=== PATIENT | female | born 1985 | race Caucasian/White ===

== ENCOUNTER 2017-11-20 08:46 | Emergency (ER) | payer OTHER ==
[~2017-11-20] VITALS: Ht 154.9 cm; Wt 63.0 kg
[~2017-11-20 08:46] MED LIST: MIRENA1 EACH IY; NORCO 5-325 TA1 EACH PO
[2017-11-20] MEDS ORDERED: ONDANSETRON ODT8 MG PO (10:58)
== END 2017-11-20 11:03 | disposition home or self-care (01) ==
LOC: ED 08:46
DX: R11.2 Nausea with vomiting, unspecified (principal); Z88.1 Allergy status to other antibiotic agents
CPT/HCPCS: 84703; 99283

== ENCOUNTER 2018-12-17 07:18 | Emergency (ER) | payer OTHER ==
[~2018-12-17] VITALS: Ht 154.9 cm; Wt 63.0 kg
[~2018-12-17 07:18] MED LIST changes: +ONDANSETRON ODT8 MG PO
[2018-12-17] MEDS ORDERED: MECLIZINE HCL25 MG PO (07:30)
[2018-12-17] MEDS ORDERED: SCOPOLAMINE1 EACH TD (07:40)
== END 2018-12-17 07:44 | disposition home or self-care (01) ==
LOC: ED 07:18
DX: R42 Dizziness and giddiness (principal); Z88.0 Allergy status to penicillin
CPT/HCPCS: 99283

== ENCOUNTER 2018-12-21 12:40 | Emergency (ER) | payer OTHER ==
[~2018-12-21] VITALS: Ht 154.9 cm; Wt 63.0 kg
[~2018-12-21 12:40] MED LIST changes: +MECLIZINE HCL25 MG PO; +SCOPOLAMINE1 EACH TD
--- OUTSIDE RECORDS SUMMARY | 2018-12-21 12:48 | XMS ---
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 Cintia has no Care Guidelines for this patient. Chana VISIT COUNT (12 MO.) 2 [facility] TOTAL 2 NOTE: Visits indicate total known visits. ED/C VISIT TRACKING (12 MO.) 12/21/2018 12:41 [facility] [place] TYPE: Emergency COMPLAINT: - DIZZINESS,VOMITING 12/17/2018 07:19 [facility] [place] TYPE: Emergency COMPLAINT: - DIZZINESS DIAGNOSES: - Allergy status to penicillin - Dizziness and giddiness INPATIENT VISIT TRACKING (12 MO.) No inpatient visits to display in this time frame [id number]
[2018-12-21] MEDS ORDERED: TRANSDERM-SCOP1 EACH TD (15:17)
[2018-12-21] MEDS ORDERED: ONDANSETRON ODT8 MG PO (15:17)
== END 2018-12-21 15:30 | disposition home or self-care (01) ==
LOC: ED 12:40
DX: H83.09 Labyrinthitis, unspecified ear (principal); Z88.0 Allergy status to penicillin
CPT/HCPCS: 80053; 85025; 96361; 96374; 99284-25; J2405; J7030

== ENCOUNTER 2021-02-05 14:46 | Emergency (ER) | payer OTHER ==
[~2021-02-05] VITALS: Ht 154.9 cm; Wt 72.6 kg
[~2021-02-05 14:46] MED LIST changes: +TRANSDERM-SCOP1 EACH TD
--- OUTSIDE RECORDS SUMMARY | 2021-02-05 14:50 | XMS ---
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 Cintia has no Care Guidelines for this patient. Care History Medical/Surgical 12/22/2018 [facility] - PATIENT DOES NOT HAVE A PCP- [facility] HAS MADE A REFERRAL TO [facility] - PATIENT HAS [employer] INSURANCE. E.D. VISIT COUNT (12 MO.) 1 [facility] TOTAL 1 NOTE: Visits indicate total known visits. ED/UCC VISIT TRACKING (12 MO.) 02/05/2021 14:48 [facility] [place] TYPE: Emergency COMPLAINT: - PAIN IN BOTH EARS INPATIENT VISIT TRACKING (12 MO.) No inpatient visits to display in this time frame [email or web address]
== END 2021-02-05 16:39 | disposition home or self-care (01) ==
LOC: ED 14:46
DX: H61.22 Impacted cerumen, left ear (principal); H69.92 Unspecified Eustachian tube disorder, left ear; Z88.0 Allergy status to penicillin
CPT/HCPCS: 69209; 99282-25

== ENCOUNTER 2022-03-19 15:05 | Emergency (ER) | payer OTHER ==
[~2022-03-19] VITALS: Ht 154.9 cm; Wt 72.6 kg
--- OUTSIDE RECORDS SUMMARY | 2022-03-19 15:18 | XMS ---
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 Cintia has no Care Guidelines for this patient. Chana VISIT COUNT (12 MO.) 1 [facility] TOTAL 1 NOTE: Visits indicate total known visits. ED/UCC VISIT TRACKING (12 MO.) 03/19/2022 15:10 [facility] [place] TYPE: Emergency COMPLAINT: - EXTREMITY PAIN/INJURUY INPATIENT VISIT TRACKING (12 MO.) No inpatient visits to display in this time frame [id number]
== END 2022-03-19 16:40 | disposition home or self-care (01) ==
LOC: ED 15:05
DX: S61.210A Laceration without foreign body of right index finger without damage to nail, initial encounter (principal); W26.8XXA Contact with other sharp object(s), not elsewhere classified, initial encounter; Y99.0 Civilian activity done for income or pay; Z88.0 Allergy status to penicillin
CPT/HCPCS: 12001; 99283-25

== ENCOUNTER 2022-04-26 21:15 | Emergency (ER) | payer OTHER ==
[~2022-04-26] VITALS: Ht 154.9 cm; Wt 67.0 kg
--- OUTSIDE RECORDS SUMMARY | 2022-04-26 21:22 | XMS ---
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 Cintia has no Care Guidelines for this patient. Chana VISIT COUNT (12 MO.) 2 [facility] TOTAL 2 NOTE: Visits indicate total known visits. ED/C VISIT TRACKING (12 MO.) 04/26/2022 21:16 [facility] [place] TYPE: Emergency COMPLAINT: - ANKLE PAIN 03/19/2022 15:10 [facility] [place] TYPE: Emergency COMPLAINT: - RT FINGER INJURY DIAGNOSES: - Contact with other sharp object(s), not elsewhere classified, initial encounter - Allergy status to penicillin - Civilian activity done for income or pay - Laceration without foreign body of right index finger without damage to nail, initial encounter INPATIENT VISIT TRACKING (12 MO.) No inpatient visits to display in this time frame [id number]
== END 2022-04-26 22:22 | disposition home or self-care (01) ==
LOC: ED 21:15
DX: S93.401A Sprain of unspecified ligament of right ankle, initial encounter (principal); W10.9XXA Fall (on) (from) unspecified stairs and steps, initial encounter; Z88.0 Allergy status to penicillin
CPT/HCPCS: 73610; 90714

== ENCOUNTER 2023-02-14 11:22 | Inpatient (IN) | payer OTHER ==
[~2023-02-14] VITALS: Ht 154.9 cm; Wt 79.4 kg
[2023-02-14 13:11] VITALS: BP 138/85
--- NOTE | 2023-02-14 16:41 | PR ---
[facility] [address] [place], [place] [address] Signed Progress Notes IP Datetime Report Generated by CPN: 02/14/2023 16:41 PROGRESS NOTES: [id number] Impression: Reassuring Heart Rate Plan: Continue Present Management Informed Consent Obtain: Induction of Labor Other Informed Consents: PreE w/ severe features / magnesium VITAL SIGNS: [id number] EXAM: [id number] Dilatation: 2.0 Effacement: 20 Station: -2 Contractions: q2-5 min MEMBRANES: [id number] Pooling: Negative Comments: Care of patient assumed by myself. Pt seen and evaluated. Cytotec just placed by RN. Pt reports rare contractions and mild magnesium symptoms. +FM. Mild HOUGH, no RUQ pain, or visual changes. Severe BPs have resolved s/p IV labetalol and magnesium. Discussed anticipated course of labor / delivery and course. Discussed approach to further antihypertensives if needed, and serial labs scheduled. All questions answered. FETUS A: [id number] FHR Baseline: 135 Variability: Moderate 6-25bpm Accelerations: 15X15 Decelerations: None FHR Category: Category I Presentation: Vertex Comments on Fetus A: No evidence of acidemia FETUS B: [id number] Signing Physician: Awilda Preciado DO Copies: ~ *Electronically Signed* 02/14/23 2604 AWILDA PRECIADO (TONY) DO PATIENT NAME: JACE FORREST PROGRESS NOTE DATE OF : 89 PHYSICIAN: AWILDA PRECIADO (JD) DO RPT #: [id number] REPORT IS CONFIDENTIAL AND NOT TO BE RELEASED WITHOUT AUTHORIZATION
--- NOTE | 2023-02-14 19:44 | PR ---
[facility] [address] [place], [place] [address] Signed Progress Notes IP Datetime Report Generated by CPN: 02/14/2023 19:44 PROGRESS NOTES: [id number] Impression: Reassuring Heart Rate Procedures: Sterile Vag Exam Plan: Continue Present Management Other Plans: Recheck 1 hr, consider AROM, cytotec, or Cook Cath Informed Consent Obtain: Induction of Labor Other Informed Consents: PreE w/ severe features / magnesium VITAL SIGNS: [id number] EXAM: [id number] Dilatation: 2.0 Effacement: 60 Station: -2 Contractions: q2-5 min MEMBRANES: [id number] Pooling: Negative Comments: Pt seen and examined. Some labile BPs requiring intermittent dosing of IV labetalol. Added oral Procardia XL 30mg x 1 dose. Will continue to monitor bps closely. Cervix still unfavorable. Dee too frequently for another dose of cytotec. Will recheck in one hour; discussed AROM vs cytotec vs Cook cath. Epidural on demand. All questions answered FETUS A: [id number] FHR Baseline: 135 Variability: Moderate 6-25bpm Accelerations: 15X15 Decelerations: None FHR Category: Category I Presentation: Vertex Comments on Fetus A: No evidence of acidemia FETUS B: [id number] Signing Physician: Awilda Preciado DO Copies: ~ *Electronically Signed* 02/14/231943 AWILDA PRECIADO (TONY) DO PATIENT NAME: JACE FORREST PROGRESS NOTE DATE OF : 89 PHYSICIAN: AWILDA PRECIADO (JD) DO RPT #: [id number] REPORT IS CONFIDENTIAL AND NOT TO BE RELEASED WITHOUT AUTHORIZATION
--- NOTE | 2023-02-14 21:50 | PR ---
[facility] [address] [place], [place] [address] Signed Progress Notes IP Datetime Report Generated by CPMirna: 02/14/2023 21:50 PROGRESS NOTES: [id number] Impression: Reassuring Heart Rate Procedures: Sterile Vag Exam Other Procedures: Cervical ripening catheter insertion Plan: Continue Present Management Other Plans: Recheck 1 hr, consider AROM, cytotec, or Cook Cath Informed Consent Obtain: Induction of Labor Other Informed Consents: PreE w/ severe features / magnesium VITAL SIGNS: [id number] EXAM: [id number] Dilatation: 2.0 Effacement: 20 Station: -2 Contractions: q2-5 min MEMBRANES: [id number] Pooling: Negative Comments: Pt seen and examined. Contractions continue but cervix unchanged. Small amount of dark bloody show or small bleeding noted on cervical exam. FHT overall reassuring. Recommend continued cervical ripening due to unfavorable cervix w/ Cook catheter. Cook cath placed w/out difficulty according to information operator's recommendations. GUILLERMO Baldwin present for entire exam and catheter placement. Will continue monitoring closely FETUS A: [id number] FHR Baseline: 135 Variability: Moderate 6-25bpm Accelerations: 15X15 Decelerations: None FHR Category: Category I Presentation: Vertex Comments on Fetus A: No evidence of acidemia FETUS B: [id number] Signing Physician: Awilda Preciado DO *Electronically Signed* 02/14/23 5340 AWILDA PRECIADO (TONY) DO PATIENT NAME: JACE FORREST PROGRESS NOTE DATE OF : 89 PHYSICIAN: AWILDA PRECIADO (JD) DO RPT #: [id number] REPORT IS CONFIDENTIAL AND NOT TO BE RELEASED WITHOUT AUTHORIZATION
--- NOTE | 2023-02-15 06:30 | PR ---
[facility] [address] [place], [place] [address] Signed Progress Notes IP Datetime Report Generated by CPN: 02/15/2023 06:30 PROGRESS NOTES: [id number] Impression: Reassuring Heart Rate Procedures: Artificial ROM; Sterile Vag Exam Other Procedures: Removal of Cook Cath Plan: Continue Present Management Other Plans: Recheck 1 hr, consider AROM, cytotec, or Cook Cath Informed Consent Obtain: Induction of Labor Other Informed Consents: PreE w/ severe features / magnesium VITAL SIGNS: [id number] EXAM: [id number] Dilatation: 4.0 Effacement: 50 Station: -2 Contractions: q2-5 min MEMBRANES: [id number] Pooling: Negative Comments: Pt seen and examined. Cook cath delivered thru cervix and resting in vagina and was removed w/out difficulty. Some dark bloody show noted. Discussed AROM and pt desires. AROM easily performed for small amount of clear fluid. Reviewed elevated BPs with no severe range pressures. Will dose another Procardia XL 30mg now. FETUS A: [id number] FHR Baseline: 135 Variability: Moderate 6-25bpm Accelerations: 15X15 Decelerations: None FHR Category: Category I Presentation: Vertex Comments on Fetus A: No evidence of acidemia FETUS B: [id number] Signing Physician: Awilda Preciado DO Copies: ~ *Electronically Signed* 02/15/23 3310 AWILDA PRECIADO (TONY) DO PATIENT NAME: JACE FORREST PROGRESS NOTE DATE OF : 89 PHYSICIAN: AWILDA PRECIADO (JD) DO RPT #: [id number] REPORT IS CONFIDENTIAL AND NOT TO BE RELEASED WITHOUT AUTHORIZATION
--- NOTE | 2023-02-15 08:38 | PR ---
[facility] [address] [place], [place] [address] Signed Progress Notes IP Datetime Report Generated by ESPINOZA: 02/15/2023 08:37 PROGRESS NOTES: [id number] Impression: Normal Progression of Labor; Reassuring Heart Rate Procedures: Intrauterine Pressure Catheter; Scalp Electrode; Sterile Vag Exam Other Procedures: Removal of Cook Cath Plan: Continue Present Management; Anticipate Vaginal Delivery Other Plans: Recheck 1 hr, consider AROM, cytotec, or Cook Cath Informed Consent Obtain: Vaginal Delivery Other Informed Consents: PreE w/ severe features / magnesium VITAL SIGNS: [id number] EXAM: [id number] Dilatation: 5.5 Effacement: 50 Station: -3 Contractions: q2-5 min MEMBRANES: [id number] Pooling: Negative Comments: Pt seen and examined. Doing well and now comfortable w/ epidural. Cx 5.5 and much softer. IUPC and FSE placed. Discussed FHT and acceleration w/ scalp stim. Overall reassuring FHT. No vaginal bleeding noted and clear fluid. Pt w/ hypokalemia and oral K+ replacement initated. Anticipate FETUS A: [id number] FHR Baseline: 135 Variability: Moderate 6-25bpm Accelerations: 15X15 Decelerations: None FHR Category: Category I Presentation: Vertex Comments on Fetus A: No evidence of acidemia FETUS B: [id number] Signing Physician: Awilda Preciado DO Copies: ~ *Electronically Signed* 02/15/23 0899 AWILDA PRECIADO (TONY) DO PATIENT NAME: JACE FORREST MARGARITA PROGRESS NOTE DATE OF : 89 PHYSICIAN: AWILDA PRECIADO (JD) DO RPT #: [id number] REPORT IS CONFIDENTIAL AND NOT TO BE RELEASED WITHOUT AUTHORIZATION
--- NOTE | 2023-02-15 17:24 | PR ---
[facility] [address] [place], [place] [address] Signed Progress Notes IP Datetime Report Generated by CPN: 02/15/2023 17:24 PROGRESS NOTES: [id number] Impression: Normal Progression of Labor; Reassuring Heart Rate Other Impressions: Slow progression / inadequate contractions Procedures: Sterile Vag Exam Other Procedures: Removal of Cook Cath Plan: Continue Present Management; Anticipate Vaginal Delivery Other Plans: Recheck 1 hr, consider AROM, cytotec, or Cook Cath Informed Consent Obtain: Vaginal Delivery Other Informed Consents: pitocin augmentation VITAL SIGNS: [id number] EXAM: [id number] Dilatation: 9.0 Effacement: 90 Station: -2 Contractions: q2-5 min MEMBRANES: [id number] Pooling: Negative Comments: Pt seen and examined. Doing well. Comfortable w/ contractions. C/O some pelvic pressure. No HOUGH, RUQ pain, or visual changes. Anticipate soon. FETUS A: [id number] FHR Baseline: 135 Variability: Moderate 6-25bpm Accelerations: 15X15 Decelerations: None FHR Category: Category I Presentation: Vertex Comments on Fetus A: No evidence of acidemia FETUS B: [id number] Signing Physician: Awilda Preciado DO Copies: ~ *Electronically Signed* 02/15/23 9831 AWILDA PRECIADO (TONY) DO PATIENT NAME: JACE FORREST PROGRESS NOTE DATE OF : 89 PHYSICIAN: AWILDA PRECIADO (JD) DO RPT #: [id number] REPORT IS CONFIDENTIAL AND NOT TO BE RELEASED WITHOUT AUTHORIZATION
--- NOTE | 2023-02-16 01:19 | PR ---
[facility] [address] [facility] [place] [place] [address] Signed PP Progress Notes Datetime Report Generated by ESPINOZA: 02/16/2023 01:19 SUBJECTIVE: [id number] Pain: Within Normal Limits Vital Signs: F2400417 Vital Signs: Reviewed Notable Details: Called to evaluate severe range BP Exam Comments: NAD, resting in bed No dyspnea/ retractions RRR DTRs: Patellar DTRs 2+, no clonus Extremities: trace edema BLLE UOP: Adequate, diuresing. 450mL in last hour. IMPRESSION/PLAN/PROCEDURES: [id number] Impression: Induced Hypertension Plan: Continue Present Management Other Plans: Re-initiate labetalol HTN protocol Progress Notes: PPD#1 s/p -admitted for MIOL for PreE with severe features. Day of admission (02/14) required labetalol 20, 40 and 80mg prior to BP controlled below severe range. Started on MgSO4. Received an procardia 30XL later that evening after an additional 80mg labetalol. Magnesium continued after delivery. Received an additional procardia 30XL at 2300 02/15 for sustained elevated but non-severe BP. -delivered at 1747 on 02/15. Initially brisk bleeding, required additional 20 units pitocin, 1000mcg cytotec per rectum, and TXA 1g. Plan: labs rechecked, labetalol 20mg IV administered and labetalol protocol re-initiated. Bleeding well controlled at this point. Signing Physician: Tom Harvey DO Copies: ~ *Electronically Signed* 02/16/23 0119 TOM HARVEY DO PATIENT NAME: JACE FORREST MARGARITA PROGRESS NOTE DATE OF : 89 PHYSICIAN: TOM HARVEY DO RPT #: [id number] REPORT IS CONFIDENTIAL AND NOT TO BE RELEASED WITHOUT AUTHORIZATION
--- NOTE | 2023-02-16 08:24 | PR ---
[facility] [address] [place], [place] [address] Signed PP Progress Notes Datetime Report Generated by ESPINOZA: 02/16/2023 08:24 SUBJECTIVE: [id number] Pain: Within Normal Limits Nausea/Vomiting: Denies Flatus: Yes Vital Signs: [id number] Vital Signs: Reviewed; Within Normal Limits Notable Details: BPs improved; will monitor closely Cardiovascular: Normal Respiratory: Normal Abdomen/Uterus: Normal Lochia: Normal Vulva/Perineum: Not Done Breasts: Not Done CVA Tenderness: Normal Extremities: Normal Incision: Not Applicable Progress: Not Applicable Exam Comments: Fundus firm U-2 nontender. IMPRESSION/PLAN/PROCEDURES: [id number] Impression: Normal Progression Plan: Continue Present Management Other Plans: Re-initiate labetalol HTN protocol Procedures: None Progress Notes: Pt seen and examined. Doing well. Some atony w/ bleeding last night managed by Dr. Harvey. Bleeding and uterine tone excellent this morning and AM Hgb 11.1. No lightheadedness/dizziness. CMP reviewed and K+ improved, creatinine normal, and Mag therapeutic. Bottlefeeding. Some labile BPs overnight. Pt received IV labetalol and another dose Procardia XL 30mg at _22:00. Excellent urine output w/ large amount of dilute urine in benjamin bag. No other questions or concerns. Continue Mag until 24 hr . Anticipate d/c home tomorrow. Discussed f/u BP visit in the office 48 hr following delivery. Discussed possible strategies for BP control as needed. All questions answered. Signing Physician: Tom Harvey DO *Electronically Signed* 02/16/23 0824 TOM HARVEY DO PATIENT NAME: JACE FORREST MARGARITA PROGRESS NOTE DATE OF : 89 PHYSICIAN: TOM HARVEY DO RPT #: [id number] REPORT IS CONFIDENTIAL AND NOT TO BE RELEASED WITHOUT AUTHORIZATION
--- NOTE | 2023-02-17 07:13 | PR ---
[facility] [address] [place], [place] [address] Signed PP Progress Notes Datetime Report Generated by CPN: 02/17/2023 07:13 SUBJECTIVE: [id number] Pain: Within Normal Limits Nausea/Vomiting: Denies Flatus: Yes Bowel Movement: Yes Vital Signs: R0579126 Vital Signs: Reviewed Notable Details: BPs improved since last night; no severe range BPs this AM Cardiovascular: Normal Respiratory: Normal Abdomen/Uterus: Normal Lochia: Normal Vulva/Perineum: Not Done Breasts: Not Done CVA Tenderness: Normal Extremities: Normal Incision: Not Applicable Progress: Normal Exam Comments: Fundus firm U-2 nontender IMPRESSION/PLAN/PROCEDURES: [id number] Impression: Normal Progression Other Impression: Improved preE w/ severe features w/ labile BPs Plan: Continue Present Management Other Plans: Re-initiate labetalol HTN protocol Procedures: None Progress Notes: Pt seen and examined. Doing well. No HOUGH, RUQ pain or visual changes. Sustained severe range BPs last night requiring IV labetalol. Oral procardia XL increased to 60mg and BPs now well controlled. Ambulating, voiding, and tolerating full diet. Pain and lochia minimal. well. No other concerns. Will keep one additional night for BP monitoring. Pt understands and agrees. All questions answered. Signing Physician: Awilda Preciado DO *Electronically Signed* 02/17/23 0725 AWILDA PRECIADO (TONY) DO PATIENT NAME: JACE FORREST PROGRESS NOTE DATE OF : 89 PHYSICIAN: AWILDA PRECIADO) DO RPT #: [id number] REPORT IS CONFIDENTIAL AND NOT TO BE RELEASED WITHOUT AUTHORIZATION
[2023-02-17 20:49] VITALS: BP 154/93
--- NOTE | 2023-02-18 08:16 | PR ---
[facility] [address] [place], [place] [address] Signed PP Progress Notes Datetime Report Generated by ESPINOZA: 02/18/2023 08:16 SUBJECTIVE: [id number] Pain: Within Normal Limits Nausea/Vomiting: Denies Flatus: Yes Bowel Movement: No Vital Signs: [id number] Vital Signs: Reviewed Notable Details: BPs improved; no sustained severe range BPs overnight Cardiovascular: Normal Respiratory: Normal Abdomen/Uterus: Normal Lochia: Normal Vulva/Perineum: Not Done Breasts: Not Done CVA Tenderness: Normal Extremities: Normal Incision: Not Applicable Progress: Not Applicable Exam Comments: Fundus firm U-2 nontender IMPRESSION/PLAN/PROCEDURES: [id number] Impression: Normal Progression Other Impression: PreE w/ severe features; improved Plan: Discharge Other Plans: Re-initiate labetalol HTN protocol Procedures: None Progress Notes: Pt seen and examined. Doing well. Ambulating, voiding, and tolerating full diet. Pain and lochia minimal. Bottlefeeding without difficulty. No HOUGH, RUQ pain, or visual changes. BPs much better controlled w/ Procardia XL 90mg po. Pt strongly desires d/c home. Reviewed s/sx PreE. Pt agrees to check BPs 1-2 x daily and call w/ elevated pressures. BP check in the office in 2 days. Planning Mirena for pp contraception. No other questions or concerns. Reviewed d/c instructions in detail w/ pt and partner. Signing Physician: Awilda Preciado DO *Electronically Signed* 02/18/23 0816 AWILDA PRECIADO) DO PATIENT NAME: JACE FORREST MARGARITA PROGRESS NOTE DATE OF : 89 PHYSICIAN: AWILDA PRECIADO (JD) DO RPT #: [id number] REPORT IS CONFIDENTIAL AND NOT TO BE RELEASED WITHOUT AUTHORIZATION
== END 2023-02-18 09:30 | disposition home or self-care (01) | DRG 807 ==
LOC: FBCO 11:22 → FBC 12:14
PROVIDERS: ADMIT Obstetrics & Gynecology; ATTEND Obstetrics & Gynecology
PROC: 10E0XZZ Delivery of Products of Conception, External Approach (ICD-10-PCS; principal; 2023-02-15)
PROC: 10907ZC Drainage of Amniotic Fluid, Therapeutic from Products of Conception, Via Natural or Artificial Opening (ICD-10-PCS; 2023-02-15)
PROC: 00HU33Z Insertion of Infusion Device into Spinal Canal, Percutaneous Approach (ICD-10-PCS; 2023-02-15)
PROC: 3E0R3BZ Introduction of Anesthetic Agent into Spinal Canal, Percutaneous Approach (ICD-10-PCS; 2023-02-15)
PROC: 0U7C3ZZ Dilation of Cervix, Percutaneous Approach (ICD-10-PCS; 2023-02-15)
PROC: 3E0P7VZ Introduction of Hormone into Female Reproductive, Via Natural or Artificial Opening (ICD-10-PCS; 2023-02-15)
PROC: 10H07YZ Insertion of Other Device into Products of Conception, Via Natural or Artificial Opening (ICD-10-PCS; 2023-02-15)
PROC: 4A1HXCZ Monitoring of Products of Conception, Cardiac Rate, External Approach (ICD-10-PCS; 2023-02-15)
DX: O14.14 Severe pre-eclampsia complicating childbirth (principal); Z37.0 Single live birth; Z20.822 Contact with and (suspected) exposure to COVID-19; Z67.10 Type A blood, Rh positive; O99.344 Other mental disorders complicating childbirth; F32.A Depression, unspecified; G51.0 Bell's palsy; Z88.1 Allergy status to other antibiotic agents; Z3A.39 39 weeks gestation of pregnancy; E83.42 Hypomagnesemia
CPT/HCPCS: 36415; 80053; 82565; 82570; 83615; 83735; 84112; 84156; 84550; 85025; 85027; 86850; 86900; 86901; A9270; C9803; J2405; J2590; J3010; J3475; J7121; U0002

== ENCOUNTER 2023-10-27 18:20 | Emergency (ER) | payer OTHER ==
[~2023-10-27] VITALS: Ht 154.9 cm; Wt 75.8 kg
--- OUTSIDE RECORDS SUMMARY | 2023-10-27 18:29 | XMS ---
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 [place]ona VISIT COUNT (12 MO.) Alpesh Bonilla Franko TOTAL 1 NOTE: Visits indicate total known visits. ED/UCC VISIT TRACKING (12 MO.) 10/27/2023 18:21 [facility] [place] TYPE: Emergency COMPLAINT: - COLD SYMPTOMS INPATIENT VISIT TRACKING (12 MO.) 02/14/2023 12:14 NATALIA Lucas [place] TYPE: [facility] COMPLAINT: - INDUCTION DIAGNOSES: - 37 weeks gestation of - 39 weeks gestation of - Allergy status to other antibiotic agents - Allergy status to other antibiotic agents - Caruso's palsy - Caruso's palsy - Contact with and (suspected) exposure to COVID-19 - Contact with and (suspected) exposure to COVID-19 - Depression, unspecified - Depression, unspecified - Hypokalemia - Hypomagnesemia - Other mental disorders complicating childbirth - Other mental disorders complicating childbirth - Severe pre-eclampsia complicating childbirth - Single live - Single live - Type A blood, Rh positive - Type A blood, Rh positive [email or web address]
[2023-10-27 19:27] LABS: INFLUENZA B NAA NEGATIVE (NEGATIVE); RESPIRATORY SYNCYTIAL VIR NAA NEGATIVE (NEGATIVE)
[2023-10-27] MEDS ORDERED: HYDROCHLOROTH12.5 M1 PO (20:49)
[2023-10-27] MEDS ORDERED: LOSARTAN POTASS50 MG PO (20:49)
[2023-10-27 22:03] LABS: BILIRUBIN, URINE NEGATIVE (negative); BLOOD/HGB, URINE NEGATIVE (Negative); KETONE, URINE NEGATIVE (Negative); LEUK ESTERASE, URINE MODERATE (negative); NITRITE, URINE NEGATIVE (negative)
[2023-10-27 22:09] LABS: BACTERIA, URINE 1+ /hpf (negative); CASTS, URINE NONE SEEN \\lpf; CRYSTALS, URINE NONE SEEN (0-1+); EPITHELIAL CELLS, URINE SQUAMOUS 3+ /lpf (0-1+); RED BLOOD CELLS, URINE 0-1 /hpf (0-5); REFLEX CULTURE, URINE No (No)
[2023-10-27 22:19] VITALS: BP 140/96
== END 2023-10-27 22:19 | disposition home or self-care (01) ==
LOC: ED 18:20
PROVIDERS: Family Medicine; Internal Medicine
DX: B34.9 Viral infection, unspecified (principal); I10 Essential (primary) hypertension; Z11.52 Encounter for screening for COVID-19; Z88.0 Allergy status to penicillin; Z79.899 Other long term (current) drug therapy
CPT/HCPCS: 81001; 84703; 87502; 87651; 94640; 94664; 99283-25; J1100; U0002